=== PATIENT | female | born 1980 | race Caucasian/White ===

== ENCOUNTER 2023-10-06 12:00 | Outpatient (CLI) | payer BC ==
[~2023-10-06] VITALS: Ht 162.6 cm; Wt 104.5 kg
[2023-10-06 11:58] VITALS: BP 136/83; O2SAT 98
[~2023-10-06 12:00] MED LIST: ALBU8.5H; BUPR300T92; BUSP5TA; CVS500CA5 PO; CYCL-707; ESOM20CA25; MONT10TA97; NOXI1TAB PO; ZYRTTAB8 PO
[2023-10-06] MEDS: IRON SUCROSE 200 MG in NS 100 ML OVER 1 HR IV ONE (12:13)
[2023-10-06 13:25] VITALS: BP 132/93; O2SAT 97
== END 2023-10-06 13:25 ==
LOC: M INFU 12:00
PROVIDERS: ATTEND Nurse Practitioner
DX: D50.9 Iron deficiency anemia, unspecified (principal)
CPT/HCPCS: 96365; J1756

== ENCOUNTER 2023-11-10 09:44 | Outpatient (CLI) | payer BC ==
[~2023-11-10] VITALS: Ht 162.6 cm; Wt 104.5 kg
[2023-11-10 09:50] VITALS: BP 140/90; O2SAT 96
[2023-11-10] MEDS: diphenhydrAMINE 25MG CAP PO ONE (10:39)
[2023-11-10] MEDS: ACETAMINOPHEN TAB 650MG DOSE (2X325MG) PO ONE (10:40)
[2023-11-10] MEDS: IRON SUCROSE 400 MG in NS 250 ML OVER 2.5 HRS IV ONE (10:40)
[2023-11-10 11:00] VITALS: BP 140/69; O2SAT 99
[2023-11-10 12:00] VITALS: BP 129/82; O2SAT 99
[2023-11-10 13:25] VITALS: BP 138/72; O2SAT 98
== END 2023-11-10 13:25 ==
LOC: M INFU 09:44
PROVIDERS: ATTEND Nurse Practitioner
DX: D64.9 Anemia, unspecified (principal)
CPT/HCPCS: 96365; 96366; J1756